=== PATIENT | female | born 1985 | race Caucasian/White ===

== ENCOUNTER 2018-10-18 20:50 | Inpatient (IN) ==
[2018-10-18] MEDS ORDERED: OXYTOCIN 30 UNITS/500 ML BAG IV PRN (21:11)
[2018-10-18] MEDS ORDERED: SODIUM CHLORIDE 0.9% 1000ML 1,000 ML IV PRN (21:14)
[2018-10-18] MEDS ORDERED: PENICILLIN G POTASSIUM 6 MU in DEXTROSE 5% 250 ML IV ONE (21:15)
--- NOTE | 2018-10-18 21:19 | History & Physical Report ---
Date of Service October 18, 2018 39 weeks gestation presents with spontaneous rupture of membranes patient is not medina significantly at this stage she is group B strep positive spontaneous rupture of membranes occurred at approximately 8 PM tonight her has been complicated by insulin-dependent gestational diabetes she is also AMA Assessment & Plan (1) PROM (premature rupture of membranes): Admit will start penicillin for GBS positive insulin protocol initiated we will see if she starts to contract on her own if not we discussed augmentation History of Present Illness Primary Care Provider: Diamond Suarez Allergies Allergy/AdvReac Type Severity Reaction Status Date / Time No Known Allergies Allergy U Verified 10/08/18 21:58 Home Medications Home Medications Medication Instructions Recorded Confirmed Type insulin NPH and regular human 38 unit SUBCUT HS 10/08/18 10/08/18 History [Humulin 70/30 U-100 Insulin] vit-iron fum-folic ac 1 tab PO DAILY 10/08/18 10/08/18 History [ Vitamin] ranitidine HCl [Zantac] 150 mg PO DAILY 10/08/18 10/08/18 History Patient History Medical History Depression No meds Kidney stones Migraine No meds Spontaneous vaginal delivery 2005; 2012 Social History Preferred Language: [place] marital status: Feels Safe at Home: Yes Smoking Status: Current every day smoker Tobacco Type: cigarettes Cigarettes Per Day: 5 Second Hand Exposure: No Hx Alcohol Use: No Hx Substance Use: No Physical Exam Constitutional: WD/WN, vitals as above Respiratory: normal respiratory effort, lungs clear to auscultation Cardiovascular: RRR, no murmur, no edema Genitourinary: Manual OB Exam: + cervical dilation (3), + cervical effacement 50% and + station -2 OB Exam Monitor Tracing: + external FHT monitor used Results & Data Vital Signs (Past 12 Hours) Vital Signs Pulse BP 10/18/18 20:56 85 145/90 H
[2018-10-18 21:41] LABS: Hematocrit (blood only) 32.7 % (37-47); Hemoglobin 10.9 g/dL (12.0-16.0); Mean Corpuscular Hgb Conc 33.3 g/dL (32-36); Mean Corpuscular Volume 81.3 fL (80-100); Mean Platelet Volume 10.5 fL (7.4-10.4); Platelet Count 296 K/uL (130-400); RDW Coefficient of Variation 14.5 % (11.5-14.5); RDW Standard Deviation 43.3 fL (36.4-46.3); Red Blood Count 4.02 M/uL (4.2-5.4); White Blood Count 14.03 K/uL (4.8-10.8)
[2018-10-18] MEDS: LACTATED RINGER'S 1,000 ML IV PRN (23:00)
[2018-10-18] MEDS ORDERED: CALCIUM CARBONATE 500 MG CHEWABLE TAB PO PRN (23:07)
[2018-10-19] MEDS: PENICILLIN G POTASSIUM 3 MU in DEXTROSE 5% 100 ML IV PRN ×3 (01:30→10:17)
[2018-10-19] MEDS ORDERED: BUTORPHANOL TARTRATE 2 MG/ML VIAL IV PRN (04:30)
[2018-10-19] MEDS ORDERED: BUPIVACAINE 0.25% 30 ML VIAL ONE (05:37)
[2018-10-19] MEDS ORDERED: fentaNYL citrate 100 MCG/2 ML VIAL ONE (05:37)
[2018-10-19] MEDS ORDERED: ePHEDrine sulfate 50 MG/ML AMP ONE (05:37)
[2018-10-19] MEDS ORDERED: fentaNYL 2MCG/ML ROPIV 1.25MG/ML 100 ML BAG EPI ONE (05:38)
[2018-10-19] MEDS: LACTATED RINGER'S 1,000 ML IV PRN (06:30)
--- NOTE | 2018-10-19 06:41 | Anesthesiology Consultation ---
Date of Service October 19, 2018 Assessment & Plan (1) Encounter for pre-operative examination: Chart Review Chart Review: Patient NOT seen in Pre Admission Testing and Acceptable Risk for Labor Epidural Consults Requested none ASA ASA2 Proposed Anesthesia Anesthesia Type: Labor Epidural History Height/Weight Height: 5 ft 1 in Weight: 88.224 kg Allergies Allergy/AdvReac Type Severity Reaction Status Date / Time No Known Allergies Allergy U Verified 10/08/18 21:58 Medications Home Medications Medication Instructions Recorded Confirmed Last Taken insulin NPH and regular human 38 unit SUBCUT HS 10/08/18 10/18/18 10/18/18 00:00 [Humulin 70/30 U-100 Insulin] vit-iron fum-folic ac 1 tab PO DAILY 10/08/18 10/18/18 10/17/18 09:00 [ Vitamin] ranitidine HCl [Zantac] 150 mg PO DAILY 10/08/18 10/18/18 10/18/18 11:00 Active Medications Generic Name Dose Route Start Last Admin Trade Name Freq PRN Reason Stop Dose Admin Calcium Carbonate 1,000 mg 10/18/18 23:07 10/18/18 23:50 Tums PO 11/17/18 23:06 1,000 mg Q4 PRN Administration Indigestion Lactated Ringer's 1,000 mls @ 125 mls/hr 10/18/18 21:11 10/19/18 06:31 Lr IV 10/20/18 21:10 0 mls/hr .Q8H PRN Infusion L&D Protocol Protocol Penicillin G Potassium 3 mu/ 106 mls @ 100 mls/hr 10/18/18 21:13 10/19/18 06:31 Dextrose IV 10/28/18 21:12 100 mls/hr Q4H PRN Administration Give until delivery Past Medical History Medical History Depression No meds Kidney stones Migraine No meds Spontaneous vaginal delivery 2005; 2012 Social History Smoking Status: Former smoker tobacco type: cigarettes Smoking cigarettes per day: 6 Do You Dip or Chew Tobacco: No Hx Alcohol Use: No Hx Substance Use: No substance use type: does not use Physical Exam Vital Signs Last Vital Signs Temp 36.9 C 10/19/18 01:00 Pulse 88 10/19/18 06:37 Resp 18 10/18/18 21:45 BP 107/62 10/19/18 06:37 Pulse Ox 92 10/19/18 06:36 Testing Laboratory Results 10/18/18 21:29 10/19/18 10/19/18 10/19/18 05:08 04:11 03:01 POC Glucose 117 H 113 H 108 H 10/19/18 10/19/18 10/19/18 02:07 01:03 00:06 POC Glucose 119 H 110 H 96 10/18/18 10/18/18 10/18/18 23:04 22:03 21:15 POC Glucose 119 H 126 H 127 H
--- NOTE | 2018-10-19 06:49 | Obstetrical Progress Note ---
Date of Service Patient requested epidural doing well heart rate category 1 October 19, 2018 Results & Data Vital Signs (Past 12 Hours) Vital Signs Temp Pulse Resp BP Pulse Ox 10/19/18 06:46 90 92 10/19/18 06:45 93 H 92 10/19/18 06:41 84 92 10/19/18 06:40 88 120/85 92 10/19/18 06:37 88 107/62 10/19/18 06:36 92 H 92 10/19/18 06:34 91 H 119/73 92 10/19/18 06:31 87 121/73 93 10/19/18 06:27 91 H 131/76 10/19/18 06:26 89 94 10/19/18 06:22 95 H 124/74 10/19/18 06:21 97 H 98 10/19/18 06:19 103 H 126/75 10/19/18 06:16 101 H 140/77 96 10/19/18 06:13 97 H 142/78 H 10/19/18 06:11 98 H 93 10/19/18 06:10 105 H 149/80 H 10/19/18 06:06 106 H 145/85 H 97 10/19/18 06:01 117 H 97 10/19/18 04:16 89 148/88 H 10/19/18 01:10 86 136/84 10/19/18 01:00 36.9 C 10/18/18 23:00 36.9 C 10/18/18 21:45 18 10/18/18 21:00 37.0 C 10/18/18 20:56 85 145/90 H
[2018-10-19] MEDS ORDERED: NALOXONE HCL 1 MG in SODIUM CHLORIDE 0.9% 1000ML 1,000 ML IV PRN (07:22)
[2018-10-19] MEDS ORDERED: ePHEDrine sulfate 50 MG/ML AMP IV PRN (07:22)
[2018-10-19] MEDS ORDERED: fentaNYL 2MCG/ML ROPIV 1.25MG/ML 100 ML BAG EPI PRN (07:22)
[2018-10-19] MEDS ORDERED: DiphenhydrAMINE HCL 50 MG/ML VIAL IV PRN (07:22)
[2018-10-19] MEDS ORDERED: NALOXONE HCL 0.4 MG/1 ML VIAL/CARP IV PRN (07:22)
[2018-10-19] MEDS ORDERED: NALBUPHINE HCL INJ 10 MG/ML AMP IV PRN (07:22)
[2018-10-19] MEDS ORDERED: OXYTOCIN 30 UNITS/500 ML BAG IV PRN ×2 (07:29→13:50)
--- NOTE | 2018-10-19 10:04 | Labor Progress Brief Note ---
Date of Service October 19, 2018 Subjective comfortable with epidural Assessment & Plan (1) PROM (premature rupture of membranes): - patient comfortable with epidural - no cervical change - will start pitocin per protocol Physical Exam Genitourinary: OB Exam Monitor Tracing: + category II, + normal FHT variability and + early decelerations present Cervix: 5/100/-1 Results & Data Vital Signs (Past 12 Hours) Vital Signs Temp Pulse Resp BP Pulse Ox 10/19/18 10:01 97 H 98 10/19/18 09:57 85 132/74 10/19/18 09:56 82 95 10/19/18 09:51 87 95 10/19/18 09:46 82 96 10/19/18 09:41 81 97 10/19/18 09:40 85 127/58 L 10/19/18 09:36 82 97 10/19/18 09:31 84 97 10/19/18 09:30 18 10/19/18 09:27 82 123/76 10/19/18 09:26 81 98 10/19/18 09:21 81 98 10/19/18 09:16 83 98 10/19/18 09:11 86 127/61 98 10/19/18 09:06 91 H 99 10/19/18 09:01 85 98 10/19/18 09:00 36.9 C 18 10/19/18 08:56 86 95 10/19/18 08:55 80 114/71 10/19/18 08:51 82 96 10/19/18 08:46 84 97 10/19/18 08:41 89 110/68 96 10/19/18 08:36 85 95 10/19/18 08:31 81 96 10/19/18 08:30 16 10/19/18 08:26 83 97 10/19/18 08:25 83 112/74 10/19/18 08:21 84 98 10/19/18 08:16 88 98 10/19/18 08:11 86 117/73 96 10/19/18 08:06 88 98 10/19/18 08:01 93 H 95 10/19/18 08:00 16 10/19/18 07:57 87 112/74 10/19/18 07:56 86 88 L 10/19/18 07:51 80 89 L 10/19/18 07:46 95 H 89 L 10/19/18 07:44 86 88 L 10/19/18 07:42 85 114/71 10/19/18 07:41 85 89 L 10/19/18 07:38 84 89 L 10/19/18 07:36 88 91 10/19/18 07:31 83 89 L 10/19/18 07:30 16 10/19/18 07:29 87 89 L 10/19/18 07:26 82 90 10/19/18 07:25 86 125/78 10/19/18 07:21 88 92 10/19/18 07:16 93 H 91 10/19/18 07:11 87 91 10/19/18 07:10 85 124/80 10/19/18 07:06 88 92 10/19/18 07:05 92 H 92 10/19/18 07:01 86 92 10/19/18 07:00 37.0 C 16 10/19/18 06:56 85 130/83 92 10/19/18 06:51 93 H 92 10/19/18 06:46 90 92 10/19/18 06:45 93 H 92 10/19/18 06:41 84 92 10/19/18 06:40 88 120/85 92 10/19/18 06:37 88 107/62 10/19/18 06:36 92 H 92 10/19/18 06:34 91 H 119/73 92 10/19/18 06:31 87 121/73 93 10/19/18 06:27 91 H 131/76 10/19/18 06:26 89 94 10/19/18 06:22 95 H 124/74 10/19/18 06:21 97 H 98 10/19/18 06:19 103 H 126/75 10/19/18 06:16 101 H 140/77 96 10/19/18 06:13 97 H 142/78 H 10/19/18 06:11 98 H 93 10/19/18 06:10 105 H 149/80 H 10/19/18 06:06 106 H 145/85 H 97 10/19/18 06:01 117 H 97 10/19/18 05:00 37.0 C 10/19/18 04:16 89 148/88 H 10/19/18 01:10 86 136/84 10/19/18 01:00 36.9 C 10/18/18 23:00 36.9 C
--- NOTE | 2018-10-19 12:20 | Labor Progress Brief Note ---
Date of Service October 19, 2018 Assessment & Plan (1) PROM (premature rupture of membranes): - tracing Cat II, variability, decels with ctx's - meconium - begin 2nd stage Physical Exam Genitourinary: Cervix: Complete/MALENA/(+)1-(+)2 Results & Data Vital Signs (Past 12 Hours) Vital Signs Temp Pulse Resp BP Pulse Ox 10/19/18 12:16 107 H 98 10/19/18 12:12 96 H 135/81 10/19/18 12:11 92 H 97 10/19/18 12:06 83 98 10/19/18 12:01 84 97 10/19/18 11:57 82 125/63 10/19/18 11:56 81 97 10/19/18 11:51 85 98 10/19/18 11:46 81 98 10/19/18 11:41 83 134/81 98 10/19/18 11:36 80 96 10/19/18 11:31 82 97 10/19/18 11:26 78 96 10/19/18 11:25 83 116/63 10/19/18 11:21 81 96 10/19/18 11:16 81 97 10/19/18 11:12 81 118/67 10/19/18 11:11 81 98 10/19/18 11:06 84 98 10/19/18 11:03 37.0 C 10/19/18 11:01 87 98 10/19/18 10:57 84 130/60 10/19/18 10:56 90 98 10/19/18 10:51 86 96 10/19/18 10:46 89 96 10/19/18 10:41 86 97 10/19/18 10:40 82 124/61 10/19/18 10:36 87 98 10/19/18 10:31 82 97 10/19/18 10:30 16 10/19/18 10:26 89 97 10/19/18 10:25 85 126/62 10/19/18 10:21 88 98 10/19/18 10:16 90 97 10/19/18 10:11 88 117/59 L 98 10/19/18 10:06 86 98 10/19/18 10:01 97 H 98 10/19/18 10:00 16 10/19/18 09:57 85 132/74 10/19/18 09:56 82 95 10/19/18 09:51 87 95 10/19/18 09:46 82 96 10/19/18 09:41 81 97 10/19/18 09:40 85 127/58 L 10/19/18 09:36 82 97 10/19/18 09:31 84 97 10/19/18 09:30 18 10/19/18 09:27 82 123/76 10/19/18 09:26 81 98 10/19/18 09:21 81 98 10/19/18 09:16 83 98 10/19/18 09:11 86 127/61 98 10/19/18 09:06 91 H 99 10/19/18 09:01 85 98 10/19/18 09:00 36.9 C 18 10/19/18 08:56 86 95 10/19/18 08:55 80 114/71 10/19/18 08:51 82 96 10/19/18 08:46 84 97 10/19/18 08:41 89 110/68 96 10/19/18 08:36 85 95 10/19/18 08:31 81 96 10/19/18 08:30 16 10/19/18 08:26 83 97 10/19/18 08:25 83 112/74 10/19/18 08:21 84 98 10/19/18 08:16 88 98 10/19/18 08:11 86 117/73 96 10/19/18 08:06 88 98 10/19/18 08:01 93 H 95 10/19/18 08:00 16 10/19/18 07:57 87 112/74 10/19/18 07:56 86 88 L 10/19/18 07:51 80 89 L 10/19/18 07:46 95 H 89 L 10/19/18 07:44 86 88 L 10/19/18 07:42 85 114/71 10/19/18 07:41 85 89 L 10/19/18 07:38 84 89 L 10/19/18 07:36 88 91 10/19/18 07:31 83 89 L 10/19/18 07:30 16 10/19/18 07:29 87 89 L 10/19/18 07:26 82 90 10/19/18 07:25 86 125/78 10/19/18 07:21 88 92 10/19/18 07:16 93 H 91 10/19/18 07:11 87 91 10/19/18 07:10 85 124/80 10/19/18 07:06 88 92 10/19/18 07:05 92 H 92 10/19/18 07:01 86 92 10/19/18 07:00 37.0 C 16 10/19/18 06:56 85 130/83 92 10/19/18 06:51 93 H 92 10/19/18 06:46 90 92 10/19/18 06:45 93 H 92 10/19/18 06:41 84 92 10/19/18 06:40 88 120/85 92 10/19/18 06:37 88 107/62 10/19/18 06:36 92 H 92 10/19/18 06:34 91 H 119/73 92 10/19/18 06:31 87 121/73 93 10/19/18 06:27 91 H 131/76 10/19/18 06:26 89 94 10/19/18 06:22 95 H 124/74 10/19/18 06:21 97 H 98 10/19/18 06:19 103 H 126/75 10/19/18 06:16 101 H 140/77 96 10/19/18 06:13 97 H 142/78 H 10/19/18 06:11 98 H 93 10/19/18 06:10 105 H 149/80 H 10/19/18 06:06 106 H 145/85 H 97 10/19/18 06:01 117 H 97 10/19/18 05:00 37.0 C 10/19/18 04:16 89 148/88 H 10/19/18 01:10 86 136/84 10/19/18 01:00 36.9 C
[2018-10-19 13:14] LABS: Base Excess Cord Arterial Bld -5.2 mEq/L (-9-1.8); CO2 Cord Arterial Blood 65 mmHg (39.1-73.5); HCO3 Cord Arterial Blood 25 mmol/L (19.7-28.5); Oxygen Sat Cord Arterial Blood > 60.0 % (<60)
[2018-10-19 13:19] LABS: Base Excess Cord Venous Blood -2.8 mEq/L (-7.7-1.9); Cord Venous Blood HCO3 22 mmol/L (18.4-26.8); Cord Venous Blood PCO2 40 mmHg (30.4-57.2); Cord Venous Blood PO2 28 mmHg (14.1-43.3); Cord Venous Blood pH 7.36 (7.20-7.44)
[2018-10-19] MEDS ORDERED: BENZOCAINE 20% AER SPR 82.5 GM CAN EXT PRN (13:50)
[2018-10-19] MEDS ORDERED: HYDROCORTISONE ACETATE 25 MG SUPP PR PRN (13:50)
[2018-10-19] MEDS ORDERED: ACETAMINOPHEN 325 MG TAB PO PRN (13:50)
[2018-10-19] MEDS ORDERED: SUPERCREAM 0.870% 15 GM JAR EXT PRN (13:50)
[2018-10-19] MEDS ORDERED: DIPHTHERIA/TETANUS/PERTUSSIS 0.5 ML SYR/VIAL IM ONE (13:50)
--- NOTE | 2018-10-19 15:08 | Anesthesia Procedure Note ---
Date of Service October 19, 2018 Anesthesia Post Epidural Note Vital Signs Vital Signs: Temp Pulse Resp BP Pulse Ox 37.0 C 86 16 133/82 99 10/19/18 11:03 10/19/18 15:02 10/19/18 12:00 10/19/18 15:02 10/19/18 12:36 Pain Intensity Abdomen: Pain Intensity: 1 Notes Mental Status: alert / awake / arousable Nausea / Vomiting: adequately controlled Pain: adequately controlled Airway Patency, RR, SpO2: stable & adequate BP & HR: stable & adequate Hydration State: stable & adequate Neuraxial Anesthesia: was administered and sensory block is resolving Anesthetic Complications: no major complications apparent and Pt Satisfied with anesthetic care Epidural: Removed without complications and With tip intact
[2018-10-19] MEDS: IBUPROFEN 600 MG TAB PO PRN ×3 (15:50→23:43)
[2018-10-19] MEDS ORDERED: DOCUSATE SODIUM 100 MG CAP ONE (19:45)
[2018-10-19] MEDS: DOCUSATE SODIUM 100 MG CAP PO SCH (21:26)
--- NOTE | 2018-10-19 23:14 | Delivery Summary ---
DATE OF OPERATION: 10/19/2018 FINDINGS: Viable female with Apgars of 8 and 9. Baby delivered over an intact perineum with a second-degree right periurethral laceration. Nuchal cord x1 reduced on the perineum. Thick meconium noted at delivery. Good spontaneous cry with no meconium resuscitation. Cord gases, cord blood samples obtained. Placenta delivered spontaneously. Laceration repaired with 4-0 Vicryl in routine fashion. Estimated blood loss 300 mL. LABOR NOTE: The patient is a 33-year-old 3, para 2 with an EDC of 10/22/2018 by dates and first trimester ultrasound, who was admitted with premature rupture of membranes. The patient states her membranes ruptured at approximately 2000 hours on 10/18/2018. She described the fluid as clear. She was having irregular contractions. The patient's course remarkable for gestational diabetes that was diagnosed at 18 weeks gestational age. The patient was followed per protocol and abdominal circumferences were greater than the 75th percentile starting insulin augmentation. The patient was followed then as an insulin gestational diabetic with nonstress test and growth ultrasounds which were all reassuring. Laboratory values for the show a blood type of A positive, antibody negative, rubella immune, hepatitis B negative. She had a negative cell-free DNA screening, and a positive third trimester beta strep culture. Upon admission, the patient was 3 cm dilated, 50% effaced, and -2 station. heart rate tracing was category 1. Because of the GBS status, the patient was started on penicillin 6 million unit loading dose, then 3 million units every 4 hours. The patient was observed and began to contract regularly. Anesthesia was consulted and an epidural was placed. Delivering physician assumed care shortly thereafter. The patient was checked 2 hours after her epidural and had no cervical change, so Pitocin augmentation was initiated. The patient progressed to full dilatation, began her second stage. She pushed for approximately 15 minutes, delivering a baby with thick meconium, nuchal cord x1 reduced on the perineum. Good vigorous cry at terminating meconium resuscitation. Cord gases, cord blood samples obtained. Placenta delivered spontaneously. Inspection of the perineum showed a right periurethral second-degree laceration which was closed with a 4-0 Vicryl suture. Estimated blood loss 300 mL. Sponge and needle count was correct. I attest to the content of the Intraoperative Record and any orders documented therein. Any exception s are noted below.
[2018-10-19] MEDS: ACETAMINOPHEN W/CODEINE #3 1 TAB PO PRN (23:42)
--- NOTE | 2018-10-20 07:10 | Obstetrical Progress Note ---
Date of Service October 20, 2018 Assessment & Plan (1) PROM (premature rupture of membranes): - doing well - patient desires d/c - instructions given - f/u in 6 weeks for pp check Subjective Ambulation: ambulating normally Diet Tolerance:: regular diet Feeding Type:: breast feeding Physical Exam Constitutional WD/WN, vitals as above Gastrointestinal (Abdomen) Fundus firm below umbilicus Musculoskeletal No deep calf tenderness Results & Data Vital Signs (Past 12 Hours) Vital Signs Temp Pulse Resp BP Pulse Ox 10/20/18 03:30 36.6 C 83 16 113/74 96 10/19/18 23:15 36.6 C 85 16 116/74 97 10/19/18 19:20 36.7 C 81 16 124/79 96
[2018-10-20] MEDS ORDERED: FERROUS SULFATE 325 MG TAB PO SCH (08:00)
[2018-10-20] MEDS ORDERED: PRENATAL VITAMIN 1 TAB PO SCH (08:00)
[2018-10-20] MEDS: IBUPROFEN 600 MG TAB PO PRN ×2 (08:22→12:30)
[2018-10-20] MEDS: DOCUSATE SODIUM 100 MG CAP PO SCH (08:22)
[2018-10-20] MEDS: ACETAMINOPHEN W/CODEINE #3 1 TAB PO PRN (08:24)
[2018-10-20] MEDS ORDERED: BISACODYL 5 MG TABEC PO SCH (20:00)
== END 2018-10-20 19:15 | disposition home or self-care (01) | DRG 807 ==
LOC: OPB 20:50 → 4S1 20:51 → 4S2 10-19 15:55

== ENCOUNTER 2020-03-07 07:47 | Inpatient (IN) ==
[2020-03-07] MEDS ORDERED: OXYTOCIN 30 UNITS/500 ML BAG IV PRN ×3 (08:21→19:56)
[2020-03-07 08:38] LABS: Hematocrit (blood only) 34.8 % (37-47); Hemoglobin 11.6 g/dL (12.0-16.0); Mean Corpuscular Hemoglobin 28.5 pg (25-34); Mean Corpuscular Hgb Conc 33.3 g/dL (32-36); Mean Corpuscular Volume 85.5 fL (80-100); Platelet Count 266 K/uL (130-400); RDW Coefficient of Variation 14.8 % (11.5-14.5); RDW Standard Deviation 45.9 fL (36.4-46.3); Red Blood Count 4.07 M/uL (4.2-5.4); White Blood Count 14.13 K/uL (4.8-10.8)
--- NOTE | 2020-03-07 08:55 | History & Physical Report ---
Date of Service March 07, 2020 Assessment & Plan (1) Insulin controlled gestational diabetes mellitus (GDM) during : - heart rate tracing category 1 with accelerations and variability -We will start Pitocin per induction protocol -Once contractions become regular will have artificial rupture of membranes -Pain management as needed by patient -We will check bedside glucoses every 4 hours and cover with insulin if indicated -Anticipate vaginal delivery Admission and Anticipated Discharge Date Admission Date: March 07, 2020 History of Present Illness Chief Complaint: Term induction Primary Care Provider: Diamond Suarez The patient is a 34-year-old 4 para 3 with an EDC of 08 March by dates and first trimester ultrasound who is admitted for term induction. The patient's course is remarkable for gestational diabetes on insulin. While her abdominal circumferences were less than the 75th percentile, the patient could not maintain sugars on diet alone. She has been followed by the gestational diabetes on insulin protocol. She has had appropriate testing. The patient is admitted for a term induction for gestational diabetes on insulin. The patient presented to labor and delivery last evening for cervical Jacobo bulb placement. The patient states that the Jacobo bulb displaced approximately 4 hours after placement. The patient has had a benign course. Her blood type is A+, antibody negative, rubella immune, hepatitis B negative, she had a negative cell free DNA screen, she had a negative Covid screen on 23 February, and a negative third trimester beta strep culture. Allergies Allergy/AdvReac Type Severity Reaction Status Date / Time No Known Drug Allergies Allergy Unknown Verified 03/07/20 08:33 Home Medications Medication Instructions Recorded Confirmed Type Vitamin 1 tab PO DAILY 10/08/18 03/07/20 History insulin NPH isoph U-100 human 20 unit SUBCUT QPM 03/07/20 03/07/20 History [Novolin N Flexpen] Patient History Medical History Depression No meds Hx of varicella Insulin controlled gestational diabetes mellitus in puerperium Kidney stones Kidney stones Migraine No meds Spontaneous vaginal delivery 2005; 2012 Surgical History No pertinent past surgical history Family History Father Heart disease Hypertension Kidney stones Social History (Updated 08/31/19 @ 09:57 by Tashia Spotts) Smoking Status: Current every day smoker Cigarettes Per Day: 5; Second Hand Exposure: No; Hx Alcohol Use: No Hx Substance Use: No Preferred Language: Slovenian Communication Ability: Effective Languages And Literature Instructor Required: No Beliefs That Will Affect Care: None marital status: marital status details: Demetrius Werner (31) [phone] Current Living Situation: Family Current Living Situation Comment: 2 kids, , mother current occupational status: unemployed Feels Safe at Home: Yes Assistive Devices: None Physical Exam Constitutional: WD/WN, vitals as above Respiratory: Auscultation: lungs clear to auscultation bilaterally Cardiovascular: RRR, no murmur, no edema Extremities: no calf tenderness Gastrointestinal (Abdomen): Gravid, vertex, positive heart tones, estimated weight of 8 pounds. Genitourinary: Cervix: 3 cm / 50%/-2/soft/posterior Results & Data ([facility]) Vital Signs (Past 12 Hours) Vital Signs Temp Pulse Resp BP 03/07/20 08:22 72 124/85 03/07/20 08:18 97.9 F 18 Code Status & VTE Plan VTE Prophylaxis Plan VTE Prophylaxis will be ordered: No Coding Level of Care Code None Diagnoses Insulin controlled gestational diabetes mellitus (GDM) during O24.414
[2020-03-07] MEDS: LACTATED RINGER'S 1,000 ML IV PRN ×2 (09:42→15:06)
--- NOTE | 2020-03-07 11:15 | Labor Progress Brief Note ---
Date of Service March 07, 2020 Subjective Reason For Note: Routine Evaluation Assessment & Plan (1) Insulin controlled gestational diabetes mellitus (GDM) during : - tracing Cat II, moderate variability with accels - AROM - continue induction Admission and Anticipated Discharge Date Admission Date: March 07, 2020 Physical Exam Genitourinary: Cx: no change, AROM, clear Results & Data ([facility]) Vital Signs (Past 12 Hours) Vital Signs Temp Pulse Resp BP 03/07/20 10:43 68 137/73 03/07/20 10:12 67 127/81 03/07/20 09:25 18 03/07/20 08:59 97.9 F 72 18 124/85 03/07/20 08:22 72 124/85 03/07/20 08:18 97.9 F 18 Coding Level of Care Code None Diagnoses Insulin controlled gestational diabetes mellitus (GDM) during O24.414
[2020-03-07] MEDS ORDERED: BUTORPHANOL TARTRATE 1 MG/ML VIAL IV PRN (12:29)
[2020-03-07] MEDS ORDERED: BUTORPHANOL TARTRATE 1 MG/ML VIAL ONE (12:30)
[2020-03-07] MEDS ORDERED: BUPIVACAINE 0.25% 30 ML VIAL ONE (14:50)
[2020-03-07] MEDS ORDERED: SODIUM CHLORIDE 0.9% INJ 10 ML VIAL ONE (14:50)
[2020-03-07] MEDS ORDERED: ePHEDrine sulfate 50 MG/ML AMP ONE (14:50)
[2020-03-07] MEDS ORDERED: fentaNYL 2MCG/ML ROPIVACAINE 1.25MG/ML 100 ML BAG EPI ONE (14:51)
[2020-03-07] MEDS ORDERED: fentaNYL citrate 100 MCG/2 ML VIAL ONE (14:51)
--- NOTE | 2020-03-07 14:55 | Anesthesiology Consultation ---
Date of Service March 07, 2020 Assessment & Plan Chart Review Chart Review: Acceptable Risk for Surgery, Patient NOT seen in Pre Admission Testing and Acceptable Risk for Labor Epidural Consults Requested none ASA ASA2 Proposed Anesthesia Anesthesia Type: Labor Epidural and CSE History Height/Weight Height: 5 ft 1 in Weight: 91.626 kg Allergies Allergy/AdvReac Type Severity Reaction Status Date / Time No Known Drug Allergies Allergy Unknown Verified 03/07/20 08:33 Medications Home Medications Medication Instructions Recorded Confirmed Last Taken Vitamin 1 tab PO DAILY 10/08/18 03/07/20 03/06/20 insulin NPH isoph U-100 human 20 unit SUBCUT QPM 03/07/20 03/07/20 03/06/20 [Novolin N Flexpen] Active Medications Generic Name Dose Route Start Last Admin Trade Name Freq PRN Reason Stop Dose Admin Butorphanol Tartrate 1 mg 03/07/20 12:29 03/07/20 12:33 Butorphanol Tartrate 1 Mg/Ml Vial IV 04/06/20 12:28 1 mg Q1H PRN Administration Pain Lactated Ringer's 1,000 mls @ 125 mls/hr 03/07/20 08:21 03/07/20 09:42 Lr IV 03/09/20 08:20 125 mls/hr .Q8H PRN Administration L&D Protocol Protocol Oxytocin 30 units in 500 mls @ 7 mls/hr 03/07/20 08:22 03/07/20 12:00 Pitocin IV 03/09/20 08:21 0.42 units/hr .Q24H PRN 7 mls/hr Labor Induction/Augmentation Titration Protocol 0.42 UNITS/HR Past Medical History Medical History Depression No meds Hx of varicella Insulin controlled gestational diabetes mellitus in puerperium Kidney stones Kidney stones Migraine No meds Spontaneous vaginal delivery 2005; 2012 Exercise / Class Metabolic Activity II 4-5 Yardwork/Stairs/Walk up hill Past Family History Family History Father Heart disease Hypertension Kidney stones Past Surgical History Surgical History No pertinent past surgical history Past Anesthesia History No Hx of Anesthesia Complications and No Family Hx of Anesthesia Complications History of PONV No Hx of PONV and No Hx of Motion Sickness Social History Smoking Status: Current every day smoker tobacco type: cigarettes Smoking cigarettes per day: 5 Do You Dip or Chew Tobacco: No Hx Alcohol Use: No Hx Substance Use: No substance use type: does not use Physical Exam Vital Signs Last Vital Signs Temp 36.7 C 03/07/20 13:52 Pulse 77 03/07/20 12:42 Resp 18 03/07/20 14:00 BP 127/74 03/07/20 12:42 Testing Laboratory Results 03/07/20 08:28 03/07/20 03/07/20 14:03 10:13 POC Glucose 85 81
--- NOTE | 2020-03-07 14:57 | Labor Progress Brief Note ---
Date of Service March 07, 2020 Subjective Reason For Note: Requested By RN (evaluate FHT'ing) Patient feeling constant pain between ctx's. Stadol helped some, would like epidural Assessment & Plan (1) Insulin controlled gestational diabetes mellitus (GDM) during : - tracing Cat II, decels with ctx's, but variability present - will hold on pitocin because of the decles - patient will get epidural for pain relief - continue induction Admission and Anticipated Discharge Date Admission Date: March 07, 2020 Physical Exam Genitourinary: Cervix: no change, FSE applied Results & Data ([facility]) Vital Signs (Past 12 Hours) Vital Signs Temp Pulse Resp BP 03/07/20 14:00 18 03/07/20 13:52 98.1 F 18 03/07/20 12:42 77 127/74 03/07/20 12:30 18 03/07/20 11:58 18 03/07/20 11:43 71 132/92 03/07/20 11:30 18 03/07/20 11:17 69 145/85 H 03/07/20 11:14 98.1 F 18 03/07/20 11:13 82 162/108 H 03/07/20 10:43 68 137/73 03/07/20 10:12 67 127/81 03/07/20 09:25 18 03/07/20 08:59 97.9 F 72 18 124/85 03/07/20 08:22 72 124/85 03/07/20 08:18 97.9 F 18 Coding Level of Care Code None Diagnoses Insulin controlled gestational diabetes mellitus (GDM) during O24.414
[2020-03-07] MEDS ORDERED: fentaNYL 2MCG/ML ROPIVACAINE 1.25MG/ML 100 ML BAG EPI PRN (15:35)
[2020-03-07] MEDS ORDERED: NALOXONE HCL 0.4 MG/1 ML VIAL/CARP IV PRN (15:35)
[2020-03-07] MEDS ORDERED: ONDANSETRON INJ 2 MG/ML 2 ML VIAL IV PRN (15:35)
[2020-03-07] MEDS ORDERED: ePHEDrine sulfate 50 MG/ML AMP IV PRN (15:35)
[2020-03-07] MEDS ORDERED: PROMETHAZINE HCL 25 MG in SODIUM CHLORIDE 0.9% 50 ML IV PRN (15:35)
[2020-03-07] MEDS ORDERED: NALOXONE HCL 1 MG in SODIUM CHLORIDE 0.9% 1000ML 1,000 ML IV PRN (15:35)
[2020-03-07] MEDS ORDERED: diphenhydrAMINE 50 MG/ML VIAL IV PRN (15:35)
--- NOTE | 2020-03-07 16:14 | Labor Progress Brief Note ---
Date of Service March 07, 2020 Subjective Reason For Note: Routine Evaluation (comfortable with epidural) Assessment & Plan (1) Insulin controlled gestational diabetes mellitus (GDM) during : - tracing Cat II with accels and variability - feel we can restart the pitocin at 2mU - pt comfortable Admission and Anticipated Discharge Date Admission Date: March 07, 2020 Results & Data ([facility]) Vital Signs (Past 12 Hours) Vital Signs Temp Pulse Resp BP Pulse Ox Pulse Ox 03/07/20 16:11 80 135/78 03/07/20 16:08 90 131/79 97 03/07/20 16:06 83 126/87 03/07/20 16:03 84 97 03/07/20 16:02 84 18 121/68 03/07/20 15:59 75 112/59 L 03/07/20 15:58 79 100 03/07/20 15:56 75 116/63 03/07/20 15:53 97.9 F 77 18 134/71 99 03/07/20 15:50 83 131/71 03/07/20 15:48 80 100 03/07/20 15:47 75 135/69 03/07/20 15:44 82 135/67 03/07/20 15:43 84 100 03/07/20 15:41 79 126/62 03/07/20 15:38 81 125/60 100 03/07/20 15:35 76 132/77 03/07/20 15:33 87 100 03/07/20 15:32 83 134/90 03/07/20 15:30 18 03/07/20 15:29 89 145/97 H 03/07/20 15:28 97 H 99 03/07/20 15:26 93 H 139/80 03/07/20 15:23 98 H 151/90 H 99 03/07/20 15:20 109 H 164/88 H 03/07/20 15:19 103 H 158/90 H 03/07/20 15:18 102 H 98 03/07/20 15:13 111 H 98 03/07/20 15:00 100 03/07/20 14:00 18 03/07/20 13:52 98.1 F 18 03/07/20 12:42 77 127/74 03/07/20 12:30 18 03/07/20 11:58 18 03/07/20 11:43 71 132/92 11/24/20 11:30 18 03/07/20 11:17 69 145/85 H 03/07/20 11:14 98.1 F 18 03/07/20 11:13 82 162/108 H 03/07/20 10:43 68 137/73 03/07/20 10:12 67 127/81 03/07/20 09:25 18 03/07/20 08:59 97.9 F 72 18 124/85 03/07/20 08:22 72 124/85 03/07/20 08:18 97.9 F 18 Coding Level of Care Code None Diagnoses Insulin controlled gestational diabetes mellitus (GDM) during O24.414
--- NOTE | 2020-03-07 17:57 | Labor Progress Brief Note ---
Date of Service March 07, 2020 Subjective Reason For Note: Requested By RN (tracing evaluation) Assessment & Plan (1) Insulin controlled gestational diabetes mellitus (GDM) during : - tracing Cat II - decelerations have returned with ctx's - variability and accelerations continue - allow labor to proceed Admission and Anticipated Discharge Date Admission Date: March 07, 2020 Physical Exam Genitourinary: Cervix: no change Results & Data ([facility]) Vital Signs (Past 12 Hours) Vital Signs Temp Pulse Resp BP Pulse Ox Pulse Ox 03/07/20 17:54 103 H 94 03/07/20 17:53 102 H 95 03/07/20 17:50 74 126/75 03/07/20 17:48 73 98 03/07/20 17:43 71 98 03/07/20 17:40 72 125/64 03/07/20 17:38 77 98 03/07/20 17:33 78 99 03/07/20 17:29 75 112/66 03/07/20 17:28 74 97 03/07/20 17:26 84 90 03/07/20 17:23 76 100 03/07/20 17:21 69 110/62 03/07/20 17:18 71 99 03/07/20 17:13 71 99 03/07/20 17:10 78 117/56 L 03/07/20 17:08 93 H 97 03/07/20 17:03 82 94 03/07/20 17:02 86 92 03/07/20 17:00 76 18 132/82 03/07/20 16:58 72 97 03/07/20 16:53 74 97 03/07/20 16:49 71 129/81 03/07/20 16:48 76 96 03/07/20 16:43 74 99 03/07/20 16:40 81 124/78 03/07/20 16:38 80 99 03/07/20 16:34 77 91 03/07/20 16:33 75 97 03/07/20 16:30 71 124/76 03/07/20 16:28 83 97 03/07/20 16:23 81 99 03/07/20 16:18 78 99 03/07/20 16:17 75 127/71 03/07/20 16:14 82 133/74 03/07/20 16:13 82 98 11/24/20 16:11 80 135/78 03/07/20 16:08 90 131/79 97 03/07/20 16:06 83 126/87 03/07/20 16:03 84 97 03/07/20 16:02 84 18 121/68 03/07/20 15:59 75 112/59 L 03/07/20 15:58 79 100 03/07/20 15:56 75 116/63 03/07/20 15:53 97.9 F 77 18 134/71 99 03/07/20 15:50 83 131/71 03/07/20 15:48 80 100 03/07/20 15:47 75 135/69 03/07/20 15:44 82 135/67 03/07/20 15:43 84 100 03/07/20 15:41 79 126/62 03/07/20 15:38 81 125/60 100 03/07/20 15:35 76 132/77 03/07/20 15:33 87 100 03/07/20 15:32 83 134/90 03/07/20 15:30 18 03/07/20 15:29 89 145/97 H 03/07/20 15:28 97 H 99 03/07/20 15:26 93 H 139/80 03/07/20 15:23 98 H 151/90 H 99 03/07/20 15:20 109 H 164/88 H 03/07/20 15:19 103 H 158/90 H 03/07/20 15:18 102 H 98 03/07/20 15:13 111 H 98 03/07/20 15:00 100 03/07/20 14:00 18 03/07/20 13:52 98.1 F 18 03/07/20 12:42 77 127/74 03/07/20 12:30 18 03/07/20 11:58 18 03/07/20 11:43 71 132/92 03/07/20 11:30 18 03/07/20 11:17 69 145/85 H 03/07/20 11:14 98.1 F 18 03/07/20 11:13 82 162/108 H 03/07/20 10:43 68 137/73 03/07/20 10:12 67 127/81 03/07/20 09:25 18 03/07/20 08:59 97.9 F 72 18 124/85 03/07/20 08:22 72 124/85 03/07/20 08:18 97.9 F 18 Coding Level of Care Code None Diagnoses Insulin controlled gestational diabetes mellitus (GDM) during O24.414
[2020-03-07] MEDS ORDERED: DIPHTHERIA/TETANUS/PERTUSSIS 0.5 ML SYR/VIAL IM ONE (19:56)
[2020-03-07] MEDS ORDERED: ACETAMINOPHEN W/CODEINE #3 1 TAB PO PRN (19:56)
[2020-03-07] MEDS ORDERED: ACETAMINOPHEN 325 MG TAB PO PRN (19:56)
[2020-03-07] MEDS ORDERED: SUPERCREAM 0.870% 15 GM JAR EXT PRN (19:56)
[2020-03-07] MEDS ORDERED: BENZOCAINE 20% AER SPR 82.5 GM CAN EXT PRN (19:56)
[2020-03-07] MEDS ORDERED: HYDROCORTISONE ACETATE 25 MG SUPP PR PRN (19:56)
[2020-03-07 19:57] LABS: Base Excess Cord Arterial Bld -7.1 mEq/L (-9-1.8); Base Excess Cord Venous Blood -5.2 mEq/L (-7.7-1.9); CO2 Cord Arterial Blood 65 mmHg (39.1-73.5); Cord Venous Blood HCO3 22 mmol/L (18.4-26.8); Cord Venous Blood PCO2 51 mmHg (30.4-57.2); Cord Venous Blood PO2 25 mmHg (14.1-43.3); Cord Venous Blood pH 7.26 (7.20-7.44); HCO3 Cord Arterial Blood 23 mmol/L (19.7-28.5); PO2 Cord Arterial Blood 33 mmHg (4.1-31.7); pH Cord Arterial Blood 7.17 (7.1-7.38)
--- NOTE | 2020-03-07 19:57 | Delivery Summary ---
Vaginal Delivery Summary Date of Service March 07, 2020 Vaginal Delivery Summary Findings: Viable male infant with Apgars of 8 and 9. Baby delivered over an intact perineum. Thick meconium with delivery. Good vigorous cry at terminating meconium resuscitation. Nuchal cord x1 reduced on the perineum arterial cord pH of 7.20, venous cord pH of 7.36 placenta delivered spontaneously. Perineum intact estimated blood loss 300 cc Labor course: The patient is a 34-year-old 4 para 3 with an EDC of 08 March by dates and first trimester ultrasound who is admitted for term induction. The patient's course is remarkable for gestational diabetes on insulin. While her abdominal circumferences were less than the 75th percentile, the patient could not maintain sugars on diet alone. She has been followed by the gestational diabetes on insulin protocol. She has had appropriate testing. The patient is admitted for a term induction for gestational diabetes on insulin. The patient presented to labor and delivery last evening for cervical Jacobo bulb placement. The patient states that the Jacobo bulb displaced approximately 4 hours after placement. The patient has had a benign course. Her blood type is A+, antibody negative, rubella immune, hepatitis B negative, she had a negative cell free DNA screen, she had a negative Covid screen on 23 February, and a negative third trimester beta strep culture. The patient was 2 to 3 cm dilated and was started on Pitocin per induction protocol. She progressed into a regular labor pattern and began to develop decelerations with contractions. In between contractions with good variability and accelerations and the tracing was felt to be category 2. The patient initially received Stadol 1 mg IV for pain control. Pain became uncontrollable. At this point patient had an epidural placed. Following placement of the epidural the patient continued on her induction. Pitocin had to be discontinued at times secondary to the decelerations. Maternal repositioning helped to alleviate the decelerations. The patient progressed to full dilatation and began her second stage. She pushed for approximately 20 minutes delivering a v iable male infant over a intact perineum terminal meconium was noted. Nuchal cord x1 was reduced on the perineum. There was a good vigorous cry at terminating meconium resuscitation. Inspection of the perineum found to be intact. Estimated blood loss 300 cc. Sponge and needle count was correct. [facility] Vaginal Delivery Charge Vaginal Delivery Codes: 70311 global code for the antepartum, delivery, and post-
[2020-03-07 19:58] LABS: O2 Saturation Cord Venous Bld < 60.0 % (<68)
--- NOTE | 2020-03-07 20:32 | Anesthesia Procedure Note ---
Date of Service March 07, 2020 Anesthesia Post Epidural Note Vital Signs Vital Signs: Temp Pulse Resp BP Pulse Ox 36.6 C 86 20 123/71 98 03/07/20 19:17 03/07/20 20:19 03/07/20 19:48 03/07/20 20:19 03/07/20 19:18 Pain Intensity Abdomen: Pain Intensity: 0 Notes Mental Status: alert / awake / arousable Nausea / Vomiting: adequately controlled Pain: adequately controlled Airway Patency, RR, SpO2: stable & adequate BP & HR: stable & adequate Hydration State: stable & adequate Neuraxial Anesthesia: was administered and sensory block is resolving Anesthetic Complications: no major complications apparent Epidural: Removed without complications and With tip intact
[2020-03-07] MEDS: DOCUSATE SODIUM 100 MG CAP PO SCH (21:50)
[2020-03-07] MEDS: IBUPROFEN 600 MG TAB PO PRN (21:50)
[2020-03-08] MEDS: IBUPROFEN 600 MG TAB PO PRN ×3 (03:28→13:21)
--- NOTE | 2020-03-08 06:50 | Obstetrical Progress Note ---
Date of Service March 08, 2020 Assessment & Plan (1) Insulin controlled gestational diabetes mellitus (GDM) during : - doing well - patient desires d/c - instructions given - d/c insulin - f/u in 6 weeks for pp check Subjective Ambulation: ambulating normally Voiding: no voiding problems Feeding Type:: breast feeding Physical Exam Constitutional WD/WN, vitals as above Gastrointestinal (Abdomen) Fundus firm below umbilicus Musculoskeletal No deep calf tenderness Results & Data ([facility]) Vital Signs (Past 12 Hours) Vital Signs Temp Pulse Pulse Resp BP BP Pulse Ox 03/08/20 03:25 97.9 F 83 16 118/79 97 03/07/20 23:10 98.1 F 80 16 116/73 03/07/20 21:35 97.9 F 85 16 147/85 H 95 03/07/20 21:17 98.1 F 82 18 142/85 H 03/07/20 20:48 93 H 18 137/65 03/07/20 20:33 93 H 16 147/64 H 03/07/20 20:19 86 18 123/71 03/07/20 20:03 88 16 137/76 03/07/20 19:48 90 20 138/75 03/07/20 19:33 99 H 18 139/97 03/07/20 19:18 113 H 98 03/07/20 19:17 97.9 F 104 H 18 131/67 03/07/20 19:13 115 H 97 03/07/20 19:11 130 H 93 03/07/20 19:08 136 H 96 03/07/20 19:03 125 H 97 03/07/20 18:59 125 H 125/76 03/07/20 18:58 114 H 98 03/07/20 18:53 117 H 98 03/07/20 18:50 94 H 124/86
[2020-03-08] MEDS ORDERED: FERROUS SULFATE 325 MG TAB PO SCH (08:00)
[2020-03-08] MEDS ORDERED: PRENATAL VITAMIN 1 TAB PO SCH (08:00)
[2020-03-08] MEDS: DOCUSATE SODIUM 100 MG CAP PO SCH (08:17)
[2020-03-08] MEDS ORDERED: bisacodyL 5 MG TABEC PO SCH (20:00)
== END 2020-03-08 20:10 | disposition home or self-care (01) | DRG 807 ==
LOC: 4S1 07:47 → 4S2 21:45